=== PATIENT | female | born 1965 | race Two or more races ===

== ENCOUNTER 2020-08-22 03:04 | Emergency (ER) | payer OTHER ==
[~2020-08-22] VITALS: Ht 162.6 cm; Wt 72.6 kg
[2020-08-22] MEDS ORDERED: ZITHROMAX1 GM (03:41)
== END 2020-08-22 08:59 | disposition home or self-care (01) ==
LOC: ER 03:04
DX: U07.1 COVID-19 (principal); R05 Cough; R50.9 Fever, unspecified